=== PATIENT | male | born 1965 | race Caucasian/White ===

== ENCOUNTER 2022-08-16 10:47 | Outpatient (REF) | payer BC, SELFPAY ==
[2022-08-16 13:54] LABS: Hematocrit 43.1 % (42.0-52.0); Hemoglobin 14.6 g/dl (14.0-18.0); Mean Corpuscular HGB Conc 33.9 g/dl (31.0-36.0); Mean Corpuscular Hemoglobin 30.3 pg (27.0-33.0); Mean Corpuscular Volume 89.4 fL (80.0-98.0); Mean Platelet Volume 9.7 fL (9.4-12.4); Platelet Count 216 X10*3/uL (160-400); Red Blood Count 4.82 X10*6/uL (4.60-5.80); Red Cell Distribution Width 12.2 % (11.0-16.0); White Blood Count 5.8 X10*3/uL (4.8-10.8)
[2022-08-16 14:01] LABS: Appearance Urine Clear; Color Urine Yellow; Glucose Urine UA Negative (Negative); Leukocyte Esterase Urine Negative (Negative); Nitrite Urine Negative (Negative); PH 6.5 (5.0-9.0); Urine Blood Negative (Negative); Urine Ketones Negative (Negative); Urine Protein Negative (Neg-Trace)
[2022-08-16 14:46] LABS: Alanine Aminotransferase 33 U/L (0-40); Albumin Level 4.4 g/dL (3.5-5.0); Alkaline Phosphatase 50 U/L (39-117); Anion Gap 11 (12-20); Aspartate Amino Transferase 23 U/L (5-37); Bilirubin Total 0.7 mg/dL (0.0-1.0); Blood Urea Nitrogen 24 mg/dL (9-16); Calcium 9.4 mg/dL (8.4-10.2); Carbon Dioxide 31 mmol/L (22-29); Chloride 105 mmol/L (96-108); Cholesterol 168 mg/dL; Estimated Glomerular Filt Rate > 60; Glucose Fasting 105 mg/dL (60-99); HDL Cholesterol 59 mg/dL; LDL Cholesterol Calculated 99 mg/dl; Potassium 4.5 mmol/L (3.3-5.1); Sodium 142 mmol/L (135-145); Triglycerides 50 mg/dL
[2022-08-16 14:50] LABS: TSH reflex Free T4 2.32 uIU/mL (0.32-4.0)
== END 2022-08-16 10:48 | disposition home or self-care (01) ==
LOC: HO.WFDLDS 10:47
PROVIDERS: Visit Provider Hospitalist
DX: Z00.00 Encounter for general adult medical examination without abnormal findings (principal)
CPT/HCPCS: 36415; 80053; 80061; 81003; 84443; 85027

== ENCOUNTER 2023-09-15 09:51 | Outpatient (AMB) | payer OTHER, SELFPAY ==
--- NOTE | 2023-09-15 10:02 | A.OFFPC_ITS ---
Vital Signs 09/15/23 10:03 Height 5 ft 7 in Weight 171 lb 2 oz BMI 26.8 BP 124/76 Blood Pressure Location Rt brachial Position Sitting Respiration 13 Pulse 65 Pulse Source Pulse Oximeter Temp 97.8 F Temp Source Temporal Artery Scan Pulse Oximetry (%) 99 Oxygen Delivery Method Room Air Intake Visit Reasons: Transfer of care/ [facility] Required: No Allergies No Known Allergies Allergy (Verified 09/15/23 10:11) Medication List - Last Reconciled 09/15/23 by Alessia Varela CNP No Known Home Meds Tobacco use date assessed: 09/15/23 Dental Screening Dental Screen Date: 09/15/23 Did you have a dental visit in the last 12 months?: Yes Did you have a dental problem in the last 6 months where you did not have access to dental care?: No Was dental information given to patient?: Patient has dentist HPI HPI Comments History of Present Illness Details 58-year-old male presents for transfer o f care Her former PCP is POLO who is no longer with the practice His last extended physical exam and blood work was in 08/16/2022 He denies past medical history except for 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 He notes he had surgical procedure to correct strabismus of the right eye when he was 9 years old in [place]; he lost half of his vision as a result of the procedure. He follow-up with an network management specialist in the [place] and was told nothing could be done to correct his eyesight He notes he has not on prescription medications He offers no complaints and denies acute symptoms at this time Nonsmoker, drinks 3 beers everyday for the past 5 years, no recreational drug use He notes that his last colonoscopy was at [facility] in [place] 3 years ago: normal He states that he has not been vaccinated for shingle but he is up-to-date on the flu vaccines He notes he sees an eye doctor at [facility] annually. His next appointment is in September [facility] Medical History (Updated 09/15/23 @ 10:38 by Alessia Varela CNP) No known health problems Surgical History (Updated 09/15/23 @ 10:08 by Adilia Ojeda MA) No pertinent past surgical history Family History (Updated 09/15/23 @ 10:08 by Adilia Ojeda MA) Mother High cholesterol Hypertension No family history of mental disorder Sister No family history of mental disorder Breast cancer in female Skin cancer Father No family history of mental disorder Alcoholism Social History Household Members: Spouse and Family Housing: House Alcohol intake: current Patient Tobacco Use Status: Never used Tobacco e-Cigarette/Vaping Use: Never Used service: No Current occupational status: employed 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 1. Little interest or pleasure in doing things: not at all 2. Feeling down, depressed, or hopeless: not at all 3. Trouble falling or staying asleep, or sleeping too much: not at all 4. Feeling tired or having little energy: not at all 5. Poor appetite or overeating: not at all 6. Feeling bad about yourself - or that you are a failure or have let yourself or your family down: not at all 7. Trouble concentrating on things, such as reading the newspaper or watching television: not at all 8. Moving or speaking so slowly that other people could have noticed. Or the opposite - being so fidgety or restless that you have been moving around a lot more than usual: not at all 9. Thoughts that you would be better off or of hurting yourself in some way: not at all Total score: 0 Depression Screening Interpretation: Negative Depression Screening Done: Yes 18228 - PHQ-9 Billing: Yes Source: Developed by Drs. Ed Crisostomo, Mira Pena, David Velázquez and colleagues, with an educational nancy from [employer]. Thrive Questionnaire Date Thrive assessed: 09/15/23 I am a: Patient What is your living situation today?: I have a steady place to live Within the past 12 months, did the food you bought not last and you didn't have the money to get more?: Never true Within the past 12 months, did you worry whether your food would run out before you got money to buy more?: Never true Do you have trouble paying for medicines?: No Do you have trouble getting transportation to medical appointments?: No Do you have trouble paying your heating and electricity bill?: No Do you have trouble taking care of your child, family member or friend?: No Do you have trouble with day-to-day activities such as bathing, preparing meals, shopping, managing finances, etc.?: No Are you currently unemployed and looking for a job?: No Are you interested in more education?: No Please select the resources that you would like help with: None Currently or been in a relationship where the following occur: no concerns reported THRIVE Score: 0 AUDIT C Alcohol Use Questionnaire (AUDIT-C) 1. How often do you have a drink containing alcohol?: 4 or more times a week 2. How many drinks containing alcohol do you have on a typical day when you are drinking?: 3 or 4 3. How often do you have six or more drinks on one occasion?: Less than monthly Total Score: 6 TIFFANIE-7 AMB Questionnaire TIFFANIE-7 Date TIFFANIE - 7 assessed: 09/15/23 Feeling nervous, anxious, or on edge: 0 = Not at all Not being able to stop or control worryin = Not at all Worrying too much about different things: 0 = Not at all Trouble relaxin = Not at all Being so restless that it is hard to sit still: 0 = Not at all Becoming easily annoyed or irritable: 0 = Not at all Feeling afraid as if something awful might happen: 0 = Not at all Total TIFFANIE-7 score (0-4 normal; 5-9 mild; 10-14 moderate; 15-21 severe): 0 Source: Developed by Drs. Ed Crisostomo, Mira Pena, David Velázquez and colleagues, with an educational nancy from [employer]. TIFFANIE-7 Assessment Billing TIFFANIE-7 Assessment Tool: TIFFANIE-7 Assessment 32893 Review of Systems Const Details: Denies chills, Denies fatigue, Denies fever(s), Denies headache(s) and Denies weakness HEENT Reports partial blindness right eye, Denies dizziness, Denies headache(s), Denies hearing loss, Denies nasal congestion, Denies sinus pain, Denies sinus pressure and Denies sore throat Card Denies chest pain, Denies lightheadedness, Denies dyspnea and Denies other (palpitations) Resp Denies cough, Denies dyspnea and Denies wheezing GI Denies abdominal pain, Denies melena, Denies hematochezia, Denies change in bowel habits, Denies dyspepsia and Denies nausea Denies hematuria and Denies dysuria Musc Denies abnormal gait, Denies myalgias, Denies arthralgias, Denies numbness and Denies tingling Skin/Breast Denies rash, Denies unusual bruising and Denies wounds Neuro Denies abnormal gait, Denies dizziness, Denies headache(s), Denies memory loss, Denies numbness, Denies Sensory deficit (Neuro), Denies tingling and Denies weakness Psych Denies anxiety, Denies depression and Denies memory loss Endo Denies cold intolerance, Denies fatigue, Denies heat intolerance, Denies polydipsia and Denies polyuria Andres/Lymph Denies easy bleeding and Denies easy bruising Aller/Immun Denies wheezing Physical exam (Primary Care) Vital Signs: Last Vital Signs Temp 97.8 F 09/15/23 10:03 Pulse 65 09/15/23 10:03 Resp 13 09/15/23 10:03 BP 124/76 09/15/23 10:03 Pulse Ox 99 09/15/23 10:03 Oxygen Delivery Method Room Air 09/15/23 10:03 BMI result Body Mass Index 26.8 Tobacco/Smoking Status: Tobacco use Status Patient Tobacco Use Status Never used Tobacco 08/16/22 10:27 e-Cigarette/Vaping Use Never Used 08/16/22 10:27 Depression Screening Interpretation: Negative Thrive Assessment: Date of Thrive Assessment Date Thrive assessed 08/16/22 08/16/22 10:27 Currently or been in a relationship where the following occur: no concerns reported Const Other: General: no acute distress, well developed, alert and awake Nutritional Appearance: well nourished Orientation/consciousness: patient oriented x3 HENMT Head: Yes normocephalic and Yes atraumatic Ears: hearing grossly normal bilaterally and TM's normal bilaterally General nose exam: Normal external nose present and Normal nares present Mouth: Normal oral and palatal mucosa present and moist mucous membranes Teeth and gingiva: dentition normal Throat: Yes oropharynx normal Eyes Pupils: Equal, round and reactive pupils present and Pupil accommodation reflex normal EOM: EOMs intact bilaterally Neck Neck: Yes normal visual inspection, Yes no lymphadenopathy and Yes trachea midline Thyroid: Thyroid normal Carotids: no bruits Lymphatic: no lymphadenopathy noted Chest Chest palpation & inspection: normal inspection of the chest Resp Effort & Inspection: normal respiratory effort Auscultation: clear to auscultation bilaterally Cardio Rate: regular rate Rhythm: regular rhythm Heart sounds: S1 normal heart sound present, S2 normal heart sound present, no gallops, no murmurs and no rubs Bruits: no abdominal aortic bruits and no carotid bruits GI Palpation (GI): No Abdominal aortic bruit present, Soft to palpation, nontender, No hepatosplenomegaly present and No Rebound tenderness present Auscultation: normal bowel sounds General: Yes no CVA tenderness Back/Spine/Pelvis Back: no CVA tenderness Cervical Spine: cervical ROM normal and No Cervical spine tenderness Thoracic/Lumbar Spine: thoraco-lumbar ROM normal, No pain with thoraco-lumbar ROM, No thoracic spinal tenderness and No lumbar spinal tenderness Skin General: warm and dry. Normal skin color. Normal skin turgor Lesions: no lesions Rashes: no rashes Trauma: no lacerations or abrasions Wounds: no wounds Nails: normal Neuro General: patient oriented x3, gait normal and CN's II-XI intact bilaterally Cranial nerves: Yes Equal, round and reactive pupils present Cognition (Neuro): normal cognition Gait exam (Neuro): Normal gait present Motor exam (neuro): 5/5 motor strength present throughout Sensory Exam: No Sensory deficit (Neuro) Deep tendon reflexes (DTR's): Right patellar reflex intensity grade: 2+ and Left patellar reflex intensity grade: 2+ Extrem General: Yes normal to inspection, No edema and No calf tenderness Psych Appearance: grossly normal Affect: normal affect Attitude: cooperative Thought process: Normal thought process present Assessment and Plan Assessment & Plan (1) Normal physical exam: Code(s): Z00.00 - Encounter for general adult medical examination without abnormal findings Plan: No significant physical restrictions or limitations noted Healthy diet and routine exercise encouraged His last colonoscopy was 6 years ago; normal. 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 He sees an eye doctor every year and has an appointment in September Advised to continue to follow-up with eye doctor as planned Return with symptoms or concerns Verbalized understanding and agreed with the plan (3) Alcohol dependence: Code(s): F10.20 - Alcohol dependence, uncomplicated Plan: He drinks 6 beers daily and has been drinking for the past 5 years Instructed on the health risks and complications of excessive alcohol consumption Encouraged to limit or avoid alcohol intake Declines addiction medicine referral at this time and notes that he would cut down on his alcohol intake Advised to follow-up with symptoms or concerns or if he changes his mind on referral to addiction medicine Verbalized understanding and agreed with the plan (4) Vaccine counseling: Code(s): Z71.85 - Encounter for immunization safety counseling Plan: He has not been vaccinated for shingles Instructed on importance of vaccination and encouraged to get vaccinated for shingles. He may request a vaccine at the local pharmacy Verbalized understanding and agreed with the plan (5) Laboratory tests ordered as part of a complete physical exam (CPE): Code(s): Z00.00 - Encounter for general adult medical examination without abnormal findings Plan: Fasting labs ordered as part of a complete physical exam. Advised to fast for at least 10 hours before getting labs drawn. May drink water Verbalized understanding and agreed with treatment plan. Orders: Orders Comprehensive [place]. Panel Fast Today Z00.00 - Encounter for general adult medical examination without abnormal findings TSH reflex Free T4 Today Z00.00 - Encounter for general adult medical examination without abnormal findings UA CC w/rflx Micro + Cult Today Z00.00 - Encounter for general adult medical examination without abnormal findings PSA, Ultra Sensitive Today Z00.00 - Encounter for general adult medical exa mination without abnormal findings Complete Blood Count Auto Diff Today Z00.00 - Encounter for general adult medical examination without abnormal findings Lipid Panel Today Z00.00 - Encounter for general adult medical examination without abnormal findings Coding Level of Care Code Est Pt Prev Care 40-64y(73083) Diagnoses Normal physical exam Z00.00 Blindness of right eye H54.40 Alcohol dependence F10.20 Vaccine counseling Z71.85 Laboratory tests ordered as part of a complete physical exam (CPE) Z00.00 Additional Codes TIFFANIE-7 Assessment Billing - TIFFANIE-7 Assessment Tool: TIFFANIE-7 Assessment [id number] ([id number])
[2023-09-15 10:03] VITALS: BP 124/76; PULSE 65; RESP 13; TEMP 36.6; O2SAT 99; BMI 26.8
== END 2023-09-15 10:34 | disposition home or self-care (01) ==
PROVIDERS: PCP Hospitalist; Visit Provider Nurse Practitioner Family
DX: Z00.00 Encounter for general adult medical examination without abnormal findings (principal); H54.40 Blindness, one eye, unspecified eye; F10.20 Alcohol dependence, uncomplicated; Z71.85 Encounter for immunization safety counseling
CPT/HCPCS: 96127; 99396

== ENCOUNTER 2023-09-15 10:40 | Outpatient (REF) | payer OTHER, SELFPAY ==
[2023-09-15 14:43] LABS: Appearance Urine Clear; Color Urine Yellow; Glucose Urine UA Negative (Negative); Leukocyte Esterase Urine Negative (Negative); Nitrite Urine Negative (Negative); PH 6.5 (5.0-9.0); Urine Blood Negative (Negative); Urine Ketones Negative (Negative); Urine Protein Negative (Neg-Trace)
[2023-09-15 18:28] LABS: MANUAL DIFF FLAG NO
[2023-09-15 18:34] LABS: Basophils Absolute Auto 0.1 X10*3/uL (0.0-0.2); Eosinophils Absolute Auto 0.2 X10*3/uL (0.0-0.4); Eosinophils Percent Auto 3.8 % (0-4); Hematocrit 40.1 % (42.0-52.0); Hemoglobin 13.9 g/dl (14.0-18.0); Imm Gran Abs Auto 0.03 X10*3/uL (0.00-0.03); Imm Gran Pct Auto 0.6 % (0.0-0.4); Lymphocytes Percent Auto 19.8 % (20-40); Mean Corpuscular HGB Conc 34.7 g/dl (31.0-36.0); Mean Corpuscular Volume 92.4 fL (80.0-98.0); Mean Platelet Volume 9.9 fL (9.4-12.4); Monocytes Absolute Auto 0.4 X10*3/uL (0.1-1.2); Monocytes Percent Auto 7.9 % (2-11); Neutrophils Absolute Auto 3.4 x10*3/uL (2.0-8.3); Neutrophils Percent Auto 66.9 % (45-73); Platelet Count 176 X10*3/uL (160-400); Red Blood Count 4.34 X10*6/uL (4.60-5.80); Red Cell Distribution Width 12.6 % (11.0-16.0); White Blood Count 5.1 X10*3/uL (4.8-10.8)
[2023-09-15 18:49] LABS: Alanine Aminotransferase 23 U/L (0-40); Albumin Level 4.5 g/dL (3.5-5.0); Alkaline Phosphatase 46 U/L (39-117); Anion Gap 8 (12-20); Aspartate Amino Transferase 23 U/L (5-37); Bilirubin Total 0.6 mg/dL (0.0-1.0); Blood Urea Nitrogen 21 mg/dL (9-16); Calcium 9.4 mg/dL (8.4-10.2); Carbon Dioxide 29 mmol/L (22-29); Chloride 106 mmol/L (96-108); Cholesterol 169 mg/dL (<200); Estimated Glomerular Filt Rate > 60; Glucose Fasting 87 mg/dL (60-99); HDL Cholesterol 72 mg/dL (>40); LDL Cholesterol Calculated 89 mg/dL (<100); Potassium 4.1 mmol/L (3.3-5.1); Sodium 139 mmol/L (135-145); Total Protein 7.5 g/dL (6.5-8.0); Triglycerides 43 mg/dL (<150)
[2023-09-15 19:06] LABS: TSH reflex Free T4 1.77 uIU/mL (0.32-4.0)
[2023-09-20 23:57] LABS: PSA, Ultra Sensitive 0.94 ng/mL
== END 2023-09-15 10:41 | disposition home or self-care (01) ==
LOC: HO.WFDLDS 10:40
PROVIDERS: Visit Provider Nurse Practitioner Family
DX: Z00.00 Encounter for general adult medical examination without abnormal findings (principal); Z12.5 Encounter for screening for malignant neoplasm of prostate; Z13.6 Encounter for screening for cardiovascular disorders
CPT/HCPCS: 36415; 80053; 80061; 81003; 84153; 84443; 85025

== ENCOUNTER 2024-09-24 07:55 | Outpatient (AMB) | payer OTHER, SELFPAY ==
--- NOTE | 2024-09-24 08:02 | A.OFFPC_ITS ---
Vital Signs 09/24/24 08:10 Height 5 ft 8 in Weight 168 lb BMI 25.5 BP 120/84 Blood Pressure Location Rt brachial Position Sitting Pulse 67 Pulse Source Pulse Oximeter Temp 98.1 F Temp Source Oral Pulse Oximetry (%) 97 Oxygen Delivery Method Room Air Intake Visit Reasons: CPE Intake Note: Luis presents in the office today for his annual physical. Manager Part Required: No Allergies No Known Allergies Allergy (Verified 09/24/24 08:17) Medication List - Last Reconciled 09/24/24 by Alessia Varela CNP No Known Home Meds Tobacco use date assessed: 09/24/24 Dental Screening Dental Screen Date: 09/24/24 Did you have a dental visit in the last 12 months?: Yes Did you have a dental problem in the last 6 months where you did not have access to dental care?: No Was dental information given to patient?: Patient has dentist HPI HPI Comments History of Present Illness Details 59-year-old male presents for an extende d physical exam. He did not get lab work done as planned for this visit. Acute issue(s) None Past Medical History - Partial blindness of right eye, strabi smus of right eye, alcohol use disorder Social History - Nonsmoker. Does not vape. Drinks 3-4 f our times weekly, 10 beers on sat and sun. Denies recreational drug use - Generally makes healthy dietary choice s. Walks routinely. Generally sleep well Health maintenance - Last eye exam was a year ago at [facility]. He has an eye appointment coming up - He sees his dentist every 6 months for cleaning - Last tetanus vaccine was in 08/05/2021 - He is not vaccinated for shingles or p neumonia; encouraged to get vaccinated for both at the local pharmacy - He notes that he is up-to-date on the flu vaccine - He notes that his last colonoscopy was at [facility] 7 years ago: normal. Recommended to f/u in 10 years [facility] Medical History (Updated 09/15/23 @ 10:38 by Alessia Varela CNP) No known health problems Surgical History (Updated 09/15/23 @ 10:08 by MOLINA Rosa) No pertinent past surgical history Family History Mother High cholesterol Hypertension No family history of mental disorder Sister No family history of mental disorder Breast cancer in female Skin cancer Father No family history of mental disorder Alcoholism Social History (Updated 09/24/24 @ 08:07 by Nasra Torers MA) Household Members: Spouse and Family Housing: House Alcohol intake: current Patient Tobacco Use Status: Never used Tobacco e-Cigarette/Vaping Use: Never Used service: No Current occupational status: employed 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 1. Little interest or pleasure in doing things: not at all 2. Feeling down, depressed, or hopeless: not at all 3. Trouble falling or staying asleep, or sleeping too much: not at all 4. Feeling tired or having little energy: not at all 5. Poor appetite or overeating: not at all 6. Feeling bad about yourself - or that you are a failure or have let yourself or your family down: not at all 7. Trouble concentrating on things, such as reading the newspaper or watching television: not at all 8. Moving or speaking so slowly that other people could have noticed. Or the opposite - being so fidgety or restless that you have been moving around a lot more than usual: not at all 9. Thoughts that you would be better off or of hurting yourself in some way: not at all Total score: 0 Depression Screening Interpretation: Negative Depression Screening Done: Yes 19025 - PHQ-9 Billing: Patient declined-do not bill Source: Developed by Drs. Ed Crisostomo, Mira Pena, David Velázquez and colleagues, with an educational nancy from [employer]. Thrive Questionnaire Date Thrive assessed: 09/24/24 I am a: Patient What is your living situation today?: I have a steady place to live Within the past 12 months, did the food you bought not last and you didn't have the money to get more?: Never true Within the past 12 months, did you worry whether your food would run out before you got money to buy more?: Never true Do you have trouble paying for medicines?: No Do you have trouble getting transportation to medical appointments?: No Do you have trouble paying your heating and electricity bill?: No Do you have trouble taking care of your child, family member or friend?: No Do you have trouble with day-to-day activities such as bathing, preparing meals, shopping, managing finances, etc.?: No Are you currently unemployed and looking for a job?: No Are you interested in more education?: No Please select the resources that you would like help with: None Currently or been in a relationship where the following occur: I choose not to answer THRIVE Score: 0 AUDIT C Alcohol Use Questionnaire (AUDIT-C) 1. How often do you have a drink containing alcohol?: 4 or more times a week 2. How many drinks containing alcohol do you have on a typical day when you are drinking?: 3 or 4 3. How often do you have six or more drinks on one occasion?: Weekly Total Score: 8 Score Reviewed/Action Taken: Yes TIFFANIE-7 AMB Questionnaire TIFFANIE-7 Date TIFFANIE - 7 assessed: 09/24/24 Feeling nervous, anxious, or on edge: 0 = Not at all Not being able to stop or control worryin = Not at all Worrying too much about different things: 0 = Not at all Trouble relaxin = Not at all Being so restless that it is hard to sit still: 0 = Not at all Becoming easily annoyed or irritable: 0 = Not at all Feeling afraid as if something awful might happen: 0 = Not at all Total TIFFANIE-7 score (0-4 normal; 5-9 mild; 10-14 moderate; 15-21 severe): 0 Source: Developed by Drs. Ed Crisostomo, Mira Pena, David Velázquez and colleagues, with an educational nancy from [employer]. TIFFANIE-7 Assessment Billing TIFFANIE-7 Assessment Tool: TIFFANIE-7 Assessment 55823 Review of Systems Const Details: Denies chills, Denies fatigue, Denies fever(s), Denies headache(s) and Denies weakness HEENT Denies change in vision, Denies dizziness, Denies headache(s), Denies hearing loss, Denies nasal congestion, Denies sinus pain, Denies sinus pressure and Denies sore throat Card Denies chest pain, Denies lightheadedness, Denies dyspnea and Denies other (palpitations) Resp Denies cough, Denies dyspnea and Denies wheezing GI Denies abdominal pain, Denies melena, Denies hematochezia, Denies change in bowel habits, Denies dyspepsia and Denies nausea Denies hematuria and Denies dysuria Musc Denies abnormal gait, Denies myalgias, Denies arthralgias, Denies numbness and Denies tingling Skin/Breast Denies rash, Denies unusual bruising and Denies wounds Neuro Denies abnormal gait, Denies dizziness, Denies headache(s), Denies memory loss, Denies numbness, Denies Sensory deficit (Neuro), Denies tingling and Denies weakness Psych Denies anxiety, Denies depression and Denies memory loss Endo Denies cold intolerance, Denies fatigue, Denies heat intolerance, Denies polydipsia and Denies polyuria Andres/Lymph Denies easy bleeding and Denies easy bruising Aller/Immun Denies wheezing Physical exam (Primary Care) Vital Signs: Last Vital Signs Temp 98.1 F 09/24/24 08:10 Pulse 67 09/24/24 08:10 BP 120/84 09/24/24 08:10 Pulse Ox 97 09/24/24 08:10 Oxygen Delivery Method Room Air 09/24/24 08:10 BMI result Body Mass Index 25.5 Tobacco/Smoking Status: Tobacco use Status Tobacco use date assessed 09/24/24 09/24/24 08:09 Patient Tobacco Use Status Never used Tobacco 09/24/24 08:07 e-Cigarette/Vaping Use Never Used 09/24/24 08:07 PHQ-9: PHQ-9 Score PHQ-9: Total score 0 09/24/24 08:13 Depression Screening Interpretation: Negative Thrive Assessment: Date of Thrive Assessment Date Thrive assessed 09/24/24 09/24/24 08:13 Currently or been in a relationship where the following occur: I choose not to answer Const Other: General: no acute distress, well developed, alert and awake Nutritional Appearance: well nourished Orientation/consciousness: patient oriented x3 HENMT Head: Yes normocephalic and Yes atraumatic Ears: hearing grossly normal bilaterally and TM's normal bilaterally General nose exam: Normal external nose present and Normal nares present Mouth: Normal oral and palatal mucosa present and moist mucous membranes Teeth and gingiva: dentition normal Throat: Yes oropharynx normal Eyes Pupils: Equal, round and reactive pupils present and Pupil accommodation reflex normal EOM: EOMs intact bilaterally Neck Neck: Yes normal visual inspection, Yes no lymphadenopathy and Yes trachea midline Thyroid: Thyroid normal Carotids: no bruits Lymphatic: no lymphadenopathy noted Chest Chest palpation & inspection: normal inspection of the chest Resp Effort & Inspection: normal respiratory effort Auscultation: clear to auscultation bilaterally Cardio Rate: regular rate Rhythm: regular rhythm Heart sounds: S1 normal heart sound present, S2 normal heart sound present, no gallops, no murmurs and no rubs Bruits: no abdominal aortic bruits and no carotid bruits GI Palpation (GI): No Abdominal aortic bruit present, Soft to palpation, nontender, No hepatosplenomegaly present and No Rebound tenderness present Auscultation: normal bowel sounds General: Yes no CVA tenderness Back/Spine/Pelvis Back: no CVA tenderness Cervical Spine: cervical ROM normal and No Cervical spine tenderness Thoracic/Lumbar Spine: thoraco-lumbar ROM normal, No pain with thoraco-lumbar ROM, No thoracic spinal tenderness and No lumbar spinal tenderness Skin General: warm and dry. Normal skin color. Normal skin turgor Lesions: no lesions Rashes: no rashes Trauma: no lacerations or abrasions Wounds: no wounds Nails: normal Neuro General: patient oriented x3, gait normal and CN's II-XI intact bilaterally Cranial nerves: Yes Equal, round and reactive pupils present Cognition (Neuro): normal cognition Gait exam (Neuro): Normal gait present Motor exam (neuro): 5/5 motor strength present throughout Sensory Exam: No Sensory deficit (Neuro) Deep tendon reflexes (DTR's): Right patellar reflex intensity grade: 2+ and Left patellar reflex intensity grade: 2+ Extrem General: Yes normal to inspection, No edema and No calf tenderness Psych Appearance: grossly normal Affect: normal affect Attitude: cooperative Thought process: Normal thought process present Coding Level of Care Code Est Pt Prev Care 40-64y(65814) Diagnoses Normal physical exam Z00.00 Alcohol dependence F10.20 Additional Codes TIFFANIE-7 Assessment Billing - TIFFANIE-7 Assessment Tool: TIFFANIE-7 Assessment 56317 ([id number]) Assessment & Plan Assessment & Plan (1) Normal physical exam: Code(s): Z00.00 - Encounter for general adult medical examination without abnormal findings Category: Medical Plan: No significant functional limitation on it. Healthy diet and routine exercise encouraged. Encouraged to perform fasting lab work and follow-up for a telehealth visit in 2-3 weeks for labs review. Return sooner with symptoms or concerns. Verbalized understanding and agreed with the treatment plan. (2) Alcohol dependence: Code(s): F10.20 - Alcohol dependence, uncomplicated Category: Medical Plan: He drinks 3-4 four times weekly, 10 beers on Saturdays and Sundays. Declines referral to [facility] comprehensive care for alcohol use disorder. Instructed on the health risks and complications of excessive alcohol intake and encouraged to limit or stop drinking alcohol. Advised to drink no more than 2 drinks daily 5 days weekly. Follow-up as needed. Verbalized understanding and agreed with the plan. Orders: Orders Vitamin D 25-OH Total Today Z00.00 - Encounter for general adult medical examination without abnormal findings
[2024-09-24 08:10] VITALS: BP 120/84; PULSE 67; TEMP 36.7; O2SAT 97; BMI 25.5
== END 2024-09-24 08:33 | disposition home or self-care (01) ==
LOC: HO.HMCFM 07:55
PROVIDERS: PCP Nurse Practitioner Family; Visit Provider Nurse Practitioner Family
DX: Z00.00 Encounter for general adult medical examination without abnormal findings (principal); F10.20 Alcohol dependence, uncomplicated

== ENCOUNTER → 2024-09-24 07:55 | Outpatient (BNVA) | payer OTHER, SELFPAY | PROVIDERS: PCP Nurse Practitioner Family; Visit Provider Nurse Practitioner Family | DX: Z13.89 Encounter for screening for other disorder (principal) ==

== ENCOUNTER 2024-09-24 08:50 | Outpatient (REF) | payer OTHER, SELFPAY ==
[2024-09-24 11:14] LABS: MANUAL DIFF FLAG NO
[2024-09-24 11:17] LABS: Appearance Urine Clear; Color Urine Yellow; Glucose Urine UA Negative (Negative); Leukocyte Esterase Urine Negative (Negative); Nitrite Urine Negative (Negative); Urine Blood Negative (Negative); Urine Ketones Trace mg/dL (Negative); Urine Protein Negative (Neg-Trace)
[2024-09-24 11:20] LABS: Basophils Percent Auto 0.7 % (0-2); Eosinophils Absolute Auto 0.2 X10*3/uL (0.0-0.4); Eosinophils Percent Auto 3.4 % (0-4); Hematocrit 40.3 % (42.0-52.0); Hemoglobin 14.1 g/dl (14.0-18.0); Imm Gran Abs Auto 0.02 X10*3/uL (0.00-0.03); Imm Gran Pct Auto 0.4 % (0.0-0.4); Lymphocytes Absolute Auto 1.1 X10*3/uL (1.2-4.9); Lymphocytes Percent Auto 19.1 % (20-40); Mean Corpuscular Hemoglobin 31.3 pg (27.0-33.0); Mean Corpuscular Volume 89.6 fL (80.0-98.0); Mean Platelet Volume 9.5 fL (9.4-12.4); Monocytes Absolute Auto 0.5 X10*3/uL (0.1-1.2); Neutrophils Absolute Auto 3.8 x10*3/uL (2.0-8.3); Neutrophils Percent Auto 67.4 % (45-73); Platelet Count 183 X10*3/uL (160-400); Red Cell Distribution Width 12.9 % (11.0-16.0); White Blood Count 5.6 X10*3/uL (4.8-10.8)
[2024-09-24 11:47] LABS: Alanine Aminotransferase 38 U/L (0-40); Albumin Level 4.7 g/dL (3.5-5.0); Alkaline Phosphatase 48 U/L (39-117); Anion Gap 9 (12-20); Aspartate Amino Transferase 41 U/L (5-37); Bilirubin Total 0.7 mg/dL (0.0-1.0); Blood Urea Nitrogen 24 mg/dL (9-16); Calcium 9.7 mg/dL (8.4-10.2); Carbon Dioxide 29 mmol/L (22-29); Chloride 107 mmol/L (96-108); Cholesterol 172 mg/dL (<200); Estimated Glomerular Filt Rate > 60; Glucose Fasting 115 mg/dL (60-99); HDL Cholesterol 83 mg/dL (>40); LDL Cholesterol Calculated 82 mg/dL (<100); Potassium 4.4 mmol/L (3.3-5.1); Sodium 141 mmol/L (135-145); Total Protein 7.3 g/dL (6.5-8.0); Triglycerides 35 mg/dL (<150)
[2024-09-24 12:03] LABS: TSH reflex Free T4 2.99 uIU/mL (0.32-4.0); Vitamin D 25-OH Total 19.8 ng/mL (>30)
[2024-09-24 12:10] LABS: Creatinine Urine 201.15 mg/dL; Microalbum/Creatinine Ratio Ur 7.4 ug/mg cr (<30)
== END 2024-09-24 08:51 | disposition home or self-care (01) ==
LOC: HO.WFDLDS 08:50
PROVIDERS: Visit Provider Nurse Practitioner Family
DX: Z00.00 Encounter for general adult medical examination without abnormal findings (principal); F10.20 Alcohol dependence, uncomplicated
CPT/HCPCS: 36415; 80053; 80061; 81003; 82043; 82306; 82570; 84443; 85025; 96127

== ENCOUNTER 2024-10-14 13:25 | Outpatient (AMB) | payer OTHER, SELFPAY ==
--- NOTE | 2024-10-14 13:17 | MHC.PC.OV ---
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 He offers no complaints and denies acute symptoms at this time. [facility] Medical History (Updated 10/14/24 @ 13:59 by Alessia Varela CNP) No known health problems Surgical History (Updated 09/15/23 @ 10:08 by MOLINA Rosa) No pertinent past surgical history Family History Mother High cholesterol Hypertension No family history of mental disorder Sister No family history of mental disorder Breast cancer in female Skin cancer Father No family history of mental disorder Alcoholism Social History (Updated 09/24/24 @ 08:07 by Nasra Torres MA) Household Members: Spouse and Family Housing: House Alcohol intake: current Patient Tobacco Use Status: Never used Tobacco e-Cigarette/Vaping Use: Never Used service: No Current occupational status: employed 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/ [employer] Current occupational exposures/hazards: No Cognitive needs: No Hearing needs: No Vision needs: No Questionnaire Thrive Questionnaire Date Thrive assessed: 07/26/24 I am a: Patient What is your living situation today?: I have a steady place to live Within the past 12 months, did the food you bought not last and you didn't have the money to get more?: Never true Within the past 12 months, did you worry whether your food would run out before you got money to buy more?: Never true Do you have trouble paying for medicines?: No Do you have trouble getting transportation to medical appointments?: No Do you have trouble paying your heating and electricity bill?: No Do you have trouble taking care of your child, family member or friend?: No Do you have trouble with day-to-day activities such as bathing, preparing meals, shopping, managing finances, etc.?: No Are you currently unemployed and looking for a job?: No Are you interested in more education?: No Please select the resources that you would like help with: None Currently or been in a relationship where the following occur: I choose not to answer THRIVE Score: 0 TIFFANIE-7 AMB Questionnaire TIFFANIE-7 Date TIFFANIE - 7 assessed: 09/24/24 Source: Developed by Drs. Ed Crisostomo, Mira Pean, David Velázquez and colleagues, with an educational nancy from [employer]. Review of Systems Const Details: Denies chills, Denies fatigue, Denies fever(s), Denies headache(s) and Denies weakness Cardiac Denies chest pain, Denies claudication, Denies leg edema, Denies lightheadedness, Denies palpitations, Denies dyspnea, Denies dyspnea on exertion, Denies orthopnea and Denies other (Loss of consciousness) Resp Denies cough, Denies excessive phlegm production, Denies dyspnea, Denies dyspnea on exertion, Denies snoring and Denies wheezing Physical exam (Primary Care) Tobacco/Smoking Status: Tobacco use Status Tobacco use date assessed 10/14/24 10/14/24 13:19 Patient Tobacco Use Status Never used Tobacco 10/14/24 13:19 e-Cigarette/Vaping Use Never Used 10/14/24 13:19 Thrive Assessment: Date of Thrive Assessment Date Thrive assessed 07/26/24 10/14/24 13:19 Currently or been in a relationship where the following occur: I choose not to answer Const Other: Patient is alert oriented x3. Telehealth Telehealth Telehealth Platform: Telephone Location of provider rendering services: practice address Location of patient: address on file Patient Identification confirmed using: Name, : Yes Telehealth method: voice only Patient verbally consented to treatment: Yes Patient verbally consented to billing insurance company: Yes Patient informed of any privacy concerns related to visit: Yes Coding Level of Care Code Tele Est Pt Level 3 (63907) Diagnoses Vitamin D deficiency E55.9 Elevated fasting glucose R73.01 Elevated AST (SGOT) R74.01 Time Spent (min) 10 Assessment & Plan Assessment & Plan (1) Vitamin D deficiency: Code(s): E55.9 - Vitamin D deficiency, unspecified Category: Medical Plan: Recent vitamin-D level is significantly low, 19.8. He has been on vitamin D3 1250 mcg every week for almost 3 weeks. Continue current treatment regimen. Will recheck vitamin-D level in 1 month. Follow-up for telehealth visit for labs review in 1 month. Verbalized understanding and agreed with the plan. (2) Elevated fasting glucose: Code(s): R73.01 - Impaired fasting glucose Category: Medical Plan: Recent fasting glucose is elevated, 115. Healthy diet and routine exercise encouraged. Will recheck fasting glucose and make changes as needed. (3) Elevated AST (SGOT): Code(s): R74.01 - Elevation of levels of liver transaminase levels Category: Medical Plan: Recent AST is slightly low, 41. Fatty liver disease possible. Likely related to poor diet or excessive alcohol intake. Healthy diet encouraged. Advised to cut down or avoid alcohol intake. No more than 2 drinks per day or 5 weekly. Will monitor liver enzymes periodically or with symptoms or concerns. Verbalized understanding and agreed with the plan. Orders: Orders Glucose Fasting Today R73.01 - Impaired fasting glucose
== END 2024-10-14 15:16 | disposition home or self-care (01) ==
LOC: HO.HMCFM 13:25
PROVIDERS: PCP Nurse Practitioner Family; Visit Provider Nurse Practitioner Family
DX: E55.9 Vitamin D deficiency, unspecified (principal); R73.01 Impaired fasting glucose; R74.01 Elevation of levels of liver transaminase levels

== ENCOUNTER → 2024-10-14 13:25 | Outpatient (BNVA) | payer OTHER, SELFPAY | PROVIDERS: PCP Nurse Practitioner Family; Visit Provider Nurse Practitioner Family ==

== ENCOUNTER 2024-11-08 08:17 | Outpatient (REF) | payer OTHER, SELFPAY ==
[2024-11-08 12:07] LABS: Glucose Fasting 107 mg/dL (60-99)
[2024-11-08 12:18] LABS: Vitamin D 25-OH Total 122.1 ng/mL (>30)
== END 2024-11-08 08:18 | disposition home or self-care (01) ==
LOC: HO.WFDLDS 08:17
PROVIDERS: Visit Provider Nurse Practitioner Family
DX: R73.01 Impaired fasting glucose (principal); E55.9 Vitamin D deficiency, unspecified
CPT/HCPCS: 36415; 82306; 82947

== ENCOUNTER 2024-11-15 14:28 | Outpatient (AMB) | payer OTHER, SELFPAY ==
--- NOTE | 2024-11-15 14:25 | A.OFFPC_ITS ---
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 He notes that he generally eats healthy but is diet mainly constitute rice and meat. He offers no complaints and denies acute symptoms at this time. [facility] Medical History (Updated 10/14/24 @ 13:59 by Alessia Varela CNP) No known health problems Surgical History (Updated 09/15/23 @ 10:08 by Adilia Ojeda [facility]) No pertinent past surgical history Family History Mother High cholesterol Hypertension No family history of mental disorder Sister No family history of mental disorder Breast cancer in female Skin cancer Father No family history of mental disorder Alcoholism Social History (Updated 09/24/24 @ 08:07 by Nasra Torres MA) Household Members: Spouse and Family Housing: House Alcohol intake: current Patient Tobacco Use Status: Never used Tobacco e-Cigarette/Vaping Use: Never Used service: No Current occupational status: employed 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 Ed Crisostomo, Mira Pena, David Velázquez and colleagues, with an educational nancy from [employer]. Review of Systems Const Details: Denies chills, Denies fatigue, Denies fever(s), Denies headache(s) and Denies weakness Cardiac Denies chest pain, Denies claudication, Denies leg edema, Denies lightheadedness, Denies palpitations, Denies dyspnea, Denies dyspnea on exertion, Denies orthopnea and Denies other (Loss of consciousness) Resp Denies cough, Denies excessive phlegm production, Denies dyspnea, Denies dyspnea on exertion, Denies snoring and Denies wheezing Physical exam (Primary Care) Tobacco/Smoking Status: Tobacco use Status Tobacco use date assessed 11/15/24 11/15/24 14:25 Patient Tobacco Use Status Never used Tobacco 11/15/24 14:25 e-Cigarette/Vaping Use Never Used 11/15/24 14:25 Thrive Assessment: Date of Thrive Assessment Date Thrive assessed 07/26/24 11/15/24 14:25 Const Other: Patient is alert and oriented x3 Telehealth Telehealth Telehealth Platform: Telephone Location of provider rendering services: practice address Location of patient: address on file Patient Identification confirmed using: Name, : Yes Telehealth method: voice only Patient verbally consented to treatment: Yes Patient verbally consented to billing insurance company: Yes Patient informed of any privacy concerns related to visit: Yes Coding Level of Care Code Tele Est Pt Level 3 (24543) Diagnoses Elevated fasting glucose R73.01 Vitamin D deficiency E55.9 Time Spent (min) 10 Assessment & Plan Assessment & Plan (1) Elevated fasting glucose: Code(s): R73.01 - Impaired fasting glucose Category: Medical Plan: Recent fasting glucose is slightly elevated, 107 from 115. Healthy diet and routine exercise encouraged. Will check A1c. Advised to perform blood work before next visit. Follow-up for telehealth visit in 2 weeks or sooner with symptoms or concerns. Verbalized understanding and agreed with the plan. (2) Vitamin D deficiency: Code(s): E55.9 - Vitamin D deficiency, unspecified Category: Medical Plan: Recent vitamin-D level is normal. He completed a course of vitamin D3 1250 mcg weekly. Vitamin D3 25 mcg daily ordered; advised to take as prescribed. Informed that the sun is a good source of vitamin-D. Verbalized understanding and agreed with the plan. Orders: Orders Hemoglobin A1c 2 Weeks R73.01 - Impaired fasting glucose Medications: New cholecalciferol (vitamin D3) (Vitamin D3) 25 mcg PO DAILY 90 days 90 tabs 1RF Discontinued cholecalciferol (vitamin D3) Discontinued Reason: Doctor's Order 1,250 mcg PO QWEEK 8 weeks 8 tabs 0RF
== END 2024-11-15 15:10 | disposition home or self-care (01) ==
LOC: HO.HMCFM 14:28
PROVIDERS: PCP Nurse Practitioner Family; Visit Provider Nurse Practitioner Family
DX: R73.01 Impaired fasting glucose (principal); E55.9 Vitamin D deficiency, unspecified

== ENCOUNTER → 2024-11-15 14:28 | Outpatient (BNVA) | payer OTHER, SELFPAY | PROVIDERS: PCP Nurse Practitioner Family; Visit Provider Nurse Practitioner Family ==

== ENCOUNTER 2024-12-05 07:42 | Outpatient (REF) | payer OTHER, SELFPAY ==
[2024-12-05 11:12] LABS: Estimated Average Glucose 108 mg/dL; Hemoglobin A1c % 5.4 % (<6.0)
== END 2024-12-05 07:43 | disposition home or self-care (01) ==
LOC: HO.WFDLDS 07:42
PROVIDERS: Visit Provider Nurse Practitioner Family
DX: R73.01 Impaired fasting glucose (principal)
CPT/HCPCS: 36415; 83036

== ENCOUNTER 2024-12-09 09:20 | Outpatient (AMB) | payer OTHER, SELFPAY ==
--- NOTE | 2024-12-09 09:17 | MHC.PC.OV ---
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 He admits to making healthy lifestyle changes. He offers no complaints and denies acute symptoms at this time. [facility] Medical History (Updated 10/14/24 @ 13:59 by Alessia Varela CNP) No known health problems Surgical History (Updated 09/15/23 @ 10:08 by Adilia Ojeda [facility]) No pertinent past surgical history Family History Mother High cholesterol Hypertension No family history of mental disorder Sister No family history of mental disorder Breast cancer in female Skin cancer Father No family history of mental disorder Alcoholism Social History (Updated 09/24/24 @ 08:07 by Nasra Torres MA) Household Members: Spouse and Family Housing: House Alcohol intake: current Patient Tobacco Use Status: Never used Tobacco e-Cigarette/Vaping Use: Never Used Second Hand Smoke Exposure: No service: No Current occupational status: employed 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 Ed Crisostomo, Mira Pena, David Velázquez and colleagues, with an educational nancy from [employer]. Review of Systems Const Details: Denies chills, Denies fatigue, Denies fever(s), Denies headache(s) and Denies weakness Cardiac Denies chest pain, Denies claudication, Denies leg edema, Denies lightheadedness, Denies palpitations, Denies dyspnea, Denies dyspnea on exertion, Denies orthopnea and Denies other (Loss of consciousness) Resp Denies cough, Denies excessive phlegm production, Denies dyspnea, Denies dyspnea on exertion, Denies snoring and Denies wheezing Physical exam (Primary Care) Tobacco/Smoking Status: Tobacco use Status Tobacco use date assessed 12/09/24 12/09/24 09:20 Patient Tobacco Use Status Never used Tobacco 12/09/24 09:20 e-Cigarette/Vaping Use Never Used 12/09/24 09:20 Thrive Assessment: Date of Thrive Assessment Date Thrive assessed 07/26/24 12/09/24 09:20 Const Other: Patient is alert oriented x3 Telehealth Telehealth Telehealth Platform: Telephone Location of provider rendering services: practice address Location of patient: address on file Patient Identification confirmed using: Name, : Yes Telehealth method: voice only Patient verbally consented to treatment: Yes Patient verbally consented to billing insurance company: Yes Patient informed of any privacy concerns related to visit: Yes Coding Level of Care Code Tele Est Pt Level 3 (75482) Diagnoses Elevated fasting glucose R73.01 Time Spent (min) 10 Assessment & Plan Assessment & Plan (1) Elevated fasting glucose: Code(s): R73.01 - Impaired fasting glucose Category: Medical Plan: Recent A1c level is normal, 5.4%. Previous fasting glucose were slightly elevated, 115 and 107. Routine exercise and healthy diet, including low carbs encouraged. Will monitor blood glucose periodically. Follow-up for an extended physical exam in September 2025. Return sooner with symptoms or concerns. Verbalized understanding and agreed with the plan.
== END 2024-12-09 10:43 | disposition home or self-care (01) ==
LOC: HO.HMCFM 09:21
PROVIDERS: PCP Nurse Practitioner Family; Visit Provider Nurse Practitioner Family
DX: R73.01 Impaired fasting glucose (principal)

== ENCOUNTER → 2024-12-09 09:20 | Outpatient (BNVA) | payer OTHER, SELFPAY | PROVIDERS: PCP Nurse Practitioner Family; Visit Provider Nurse Practitioner Family | DX: Z13.89 Encounter for screening for other disorder (principal) ==